=== PATIENT | female | born 1980 | race Two or more races ===

== ENCOUNTER 2022-05-17 10:18 | Emergency (ER) | payer OTHER ==
[2022-05-17 10:35] VITALS: BP 169/85
--- NOTE | 2022-05-17 11:40 | ED Physician Documentation ---
PD HPI LOWER EXT INJURY - Stated complaint Stated Complaint: LT LEG PX - Chief complaint Chief Complaint: Ext Problem - History obtained from History obtained from: Patient - History of Present Illness PD HPI LOW EXT INJURY LOCATION: Left, Thigh Type of injury: Other (she was working in a field and got bit/stung by some insect on lateral thigh, with pain and development of swelling locally. No generalized swelling, dyspnea, wheezing, itching, nor throat swelling.) Where injury occurred: Work Timing - onset: How many hours ago (1), Today Timing - duration: Hours (1) Timing - details: Abrupt onset, Still present Worsened by: Moving, Palpating Associated symptoms: Swelling, Discolored (some redness of thigh only). No: Weakness, Numbness Similar symptoms before: Has not had sx before Review of Systems Constitutional: denies: Fever, Chills Nose: denies: Rhinorrhea / runny nose, Congestion Throat: denies: Sore throat, Swollen tonsils Respiratory: denies: Dyspnea, Wheezing GI: denies: Nausea, Vomiting Skin: denies: Rash (no general rash) Neurologic: reports: Generalized weakness. denies: Focal weakness, Numbness, Near syncope PD PAST MEDICAL HISTORY - Past Medical History Past Medical History: No Cardiovascular: None Respiratory: None Neuro: None Endocrine/Autoimmune: None - Allergies Allergies/Adverse Reactions: Allergies Allergy/AdvReac Type Severity Reaction Status Date / Time No Known Drug Allergies Allergy Verified 05/17/22 10:35 PD ED PE NORMAL - Vitals Vital signs reviewed: Yes - General General: Alert and oriented X 3, No acute distress, Well developed/nourished - HEENT HEENT: Moist mucous membranes, Pharynx benign (no oral edema noted. ) - Neck Neck: Supple, no meningeal sign, No adenopathy - Cardiac Cardiac: RRR, No murmur - Respiratory Respiratory: No respiratory distress, Clear bilaterally - Derm Derm: Normal color, Warm and dry - Extremities Extremities: Other (left lower lateral thigh with focal area of swelling, tenderness, warmth. No FB. ) - Neuro Neuro: Alert and oriented X 3, No motor deficit, No sensory deficit, Normal speech Results - Vitals Vitals: Oxygen O2 Source Room air PD MEDICAL DECISION MAKING - ED course Complexity details: considered differential (local reaction. No general symptoms to suggest anaphylactic picture. ), d/w patient Departure - Departure Disposition: 01 Home, Self Care Clinical Impression: Insect sting Qualifiers: Encounter type: initial encounter Injury intent: undetermined intent Qualified Code(s): T63.484A - Toxic effect of venom of other arthropod, undetermined, initial encounter Condition: Stable Record reviewed to determine appropriate education?: Yes Instructions: ED Bite Sting Insect Local Allergic React Comments: This looks to be a local reaction to an insect sting. The character sounds more likely to be bee or wasp rather than spider given the abrupt pain and tenderness in the area. Tylenol or ibuprofen or both if needed for pains through the day today. If you feel some itchiness swelling or redness in the area, you could also use Zyrtec or Benadryl 2-3 times daily for a day or 2. Cool towels or ice to the area this afternoon will helps symptoms. Recheck if not improved completely over the next 1 to 2 days. Discharge Date/Time: 05/17/22 12:46
[2022-05-17] MEDS ORDERED: HYDROcod/ACETAM 5/325 MG TABLET PO STA (12:15)
[2022-05-17] MEDS ORDERED: CETIRIZINE 10 MG TABLET PO STA (12:15)
[2022-05-17] MEDS ORDERED: IBUPROFEN 600 MG TABLET PO STA (12:15)
== END 2022-05-17 12:46 | disposition home or self-care (01) ==
LOC: ED 10:18
DX: T63.484A Toxic effect of venom of other arthropod, undetermined, initial encounter (principal)
CPT/HCPCS: 1040M; 99282; A9270